=== PATIENT | female | born 1980 | race Two or more races ===

== ENCOUNTER 2018-07-30 11:09 | Emergency (ER) | payer MEDICAID, OTHER ==
[~2018-07-30] VITALS: Ht 160 cm; Wt 90.7 kg
[2018-07-30 12:02] VITALS: BP 100/55
[2018-07-30] MEDS ORDERED: KETOROLAC TROMETH 60MG/2ML VIAL IM ONE (12:30)
[2018-07-30] MEDS ORDERED: METHOCARBAMOL 500 MG TAB PO ONE (12:30)
== END 2018-07-30 13:04 | disposition home or self-care (01) ==
LOC: ER 11:09
DX: S13.4XXA Sprain of ligaments of cervical spine, initial encounter (principal); R07.89 Other chest pain; V49.59XA Passenger injured in collision with other motor vehicles in traffic accident, initial encounter; Y93.I9 Activity, other involving external motion; Y92.488 Other paved roadways as the place of occurrence of the external cause; Y99.8 Other external cause status
CPT/HCPCS: 72125; 96372; 99284; J1885

== ENCOUNTER 2022-04-24 18:07 | Emergency (ER) | payer MEDICAID ==
[~2022-04-24] VITALS: Ht 160 cm; Wt 82.0 kg
[2022-04-24] MEDS ORDERED: TETANUS-DIPTH-ACEL PERTUSSIS 0.5ML SYR Tdap IM ONE (20:15)
[2022-04-24] MEDS ORDERED: HYDROcodone-ACET 5/325MG TAB PO ONE (20:15)
[2022-04-24] MEDS ORDERED: IBUP800T26 PO (21:29)
[2022-04-24] MEDS ORDERED: ACET-1158 PO (21:29)
[2022-04-24] MEDS ORDERED: CEPH-510 PO (21:29)
[2022-04-24 22:25] VITALS: BP 114/56
== END 2022-04-24 22:35 | disposition home or self-care (01) ==
LOC: ER 18:07
DX: L03.011 Cellulitis of right finger (principal)
CPT/HCPCS: 90471; 90715